=== PATIENT | male | born 1985 | race Caucasian/White ===

== ENCOUNTER 2016-10-16 11:44 | Outpatient (CLI) | payer OTHER ==
--- NOTE | 2016-10-16 13:18 | DIAGNOSTIC IMAGING REPORT ---
PROCEDURE: XR CHEST 2 VIEW INDICATION: Preop, cough. Initial encounter. TECHNIQUE: PA and lateral view. COMPARISON: None. FINDINGS: Mild hyperinflation. Lungs are clear. Cardiovascular structures are normal. Bony thorax is unremarkable. IMPRESSION: 1. Negative chest.
== END 2016-10-16 23:00 ==
LOC: XR SRH 11:44
DX: Z01.811 Encounter for preprocedural respiratory examination (principal); Z01.812 Encounter for preprocedural laboratory examination
CPT/HCPCS: 90004; 90100; 95059

== ENCOUNTER 2016-10-21 06:49 | Day surgery (SDC) | payer OTHER ==
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
--- NOTE | 2016-10-21 12:34 | Postoperative Progress Note ---
Postop Progress Note Preoperate Diagnosis: Mass LIF Postoperative Diagnosis: Same Surgeon: Anibal Teague MD Anesthesia: Local, Conscious Sedation Findings: Mass LIF Procedure: Removal mass LIF Complications? No Condition: Stable EBL: 3cc Blood Administered: 0 Specimen(s) removed? Yes Specimen removed/disposition: Mass LIF Grafts or Implants? No . (See nursing notes for details of grafts/implants)
[2016-10-21] MEDS ORDERED: NORCO1 TAB PO (12:43)
--- NOTE | 2016-10-21 12:43 | Provider's Discharge Care Plan ---
Problem, Goal, Plan Problem List 1. Superficial foreign body of left index finger, sequela
--- NOTE | 2016-10-21 12:43 | Provider's Discharge Care Plan ---
Problem, Goal, Plan Problem List 1. Superficial foreign body of left index finger, sequela
[2016-10-21 13:37] VITALS: BP 136/72
--- NOTE | 2016-10-22 19:15 | OPERATIVE REPORT ---
DATE OF SURGERY: 10/21/2016 SURGEON: CHRISTA PEÑALOZA MD PREOPERATIVE DIAGNOSIS: 1. Mass of the left index finger POSTOPERATIVE DIAGNOSIS: 1. Mass of the left index finger PROCEDURE PERFORMED: 1. Removal of mass from left index finger ESTIMATED BLOOD LOSS: Only a few milliliters. COMPLICATIONS: None. PATHOLOGY SPECIMEN: Sent to laboratory were the mass removed from the finger. SURGICAL TECHNIQUE: The patient was taken to the operating room, was given IV sedation. The arm and hand were prepped and draped in the usual sterile fashion. He then had a curving longitudinal incision made over the volar aspect of left index finger overlying the middle phalanx. It was carried down through subcutaneous tissue. Small mass was present there and was easily removed. It is only about of an eighth of an inch in diameter, but it was right in the position where it would cause him pain as he would try to grasp things and had been there for a prolonged period of time, he said sometimes larger, sometimes smaller, but it was removed without difficulty. The skin was then closed using 3-0 nylon interrupted simple sutures. He was dressed with Xeroform and small piece of gauze, and 2-inch conform bandage and this was taped securely in place. He is awakened, taken to recovery room in stable condition.
== END 2016-10-21 13:55 | disposition home or self-care (01) ==
LOC: SDC SRH 06:49 → SCU SRH 06:50 → SDC SRH 11:30 → OR SRH 11:30 → SDC SRH 13:55
PROVIDERS: Orthopaedic Surgery
PROC: 0JBK0ZX Excision of Left Hand Subcutaneous Tissue and Fascia, Open Approach, Diagnostic (ICD-10-PCS; principal; 2016-10-21 11:30)
DX: D36.7 Benign neoplasm of other specified sites (principal); Z72.0 Tobacco use
CPT/HCPCS: 29229; 29240; 50004; 60001; 80011; 84044